=== PATIENT | male | born 1955 | race Caucasian/White ===

== ENCOUNTER → 2017-07-20 | Outpatient (CLI) | payer BC ==
--- NOTE | 2017-07-20 15:00 | Diagnostic Imaging Report ---
EXAMINATION: Upper and lower extremity pressure measurements of ankle/brachial index and pulse volume recording at the ankle. INDICATION: Claudication FINDINGS: The ankle/brachial index on the right side is 0.85, (0.85 PT, and 0.6 DP) and on the left is 0.15 (0.75 PT, and not obtained DP). Pulse volume recording waveforms severely dampened amplitude on the left side and mild dampening of the waveforms in the right. IMPRESSION: 1. Markedly severe reduced pressures at the left ankle suggestive of advanced vascular disease. 2. Mildly reduced pressures in the right ankle. Dictated by: Dictated on workstation # [id number]
== END ==
LOC: RAD 13:00
PROVIDERS: ATTEND Podiatrist
DX: I73.9 Peripheral vascular disease, unspecified (principal)
CPT/HCPCS: 93922